=== PATIENT | female | born 1990 | race Hispanic/Latino ===

== ENCOUNTER 2021-05-05 11:22 | Emergency (ER) | payer BC ==
[2021-05-05 12:04] LABS: Urine Blood 2+ (Negative); Urine Glucose Negative (Negative); Urine Protein Negative (Negative); Urine pH 8.5 (5.0-7.0)
[2021-05-05 12:10] LABS: Absolute Lymphocytes (CBC) 3.7 K/uL (0.7-4.9); Basophils % 0.8 % (0-1.3); Hematocrit 41.6 % (36.0-45.0); MPV 8.6 fL (7.6-11.3); RBC Red Blood Cell Count 5.05 M/uL (3.86-4.86)
[2021-05-05 12:46] LABS: ALT/SGPT 46 U/L (12-78); AST/SGOT 29 U/L (15-37); Albumin 3.6 g/dL (3.4-5.0); Alkaline Phosphatase 91 U/L (45-117); BUN Blood Urea Nitrogen 10 mg/dL (7-18); Bicarbonate 28 mmol/L (21-32); Bilirubin Direct 0.1 mg/dL (0-0.2); Bilirubin Total 0.4 mg/dL (0.2-1.0); Glucose Level 93 mg/dL (74-106); Lipase 58 U/L (73-393); Potassium 3.6 mmol/L (3.5-5.1); Protein, Total 8.4 g/dL (6.4-8.2); Sodium Level 140 mmol/L (136-145)
--- NOTE | 2021-05-05 13:21 | RAD REPORT ---
EXAM DESCRIPTION: CTAbdomen Pelvis W Contrast - 05/05/2021 1:06 pm CLINICAL HISTORY: Abdominal pain. Abd pain COMPARISON: No comparisons TECHNIQUE: Biphasic CT imaging of the abdomen and pelvis was performed with 100 ml non-ionic IV cont rast. All CT scans are performed using dose optimization technique as appropriate and may include automated exposure control or mA/KV adjustment according to patient size. FINDINGS: The lung bases are clear. The liver is diffusely fatty. The spleen, pancreas, adrenal glands and kidneys are within normal limi ts. Small fat containing umbilical hernia. No bowel obstruction, free air, free fluid or abscess. The appendix is normal. No evidence of signi ficant lymphadenopathy. No suspicious bony findings. IMPRESSION: No acute intra-abdominal or pelvic finding. Mild diffuse fatty liver.
--- NOTE | 2021-05-05 13:26 | ER ---
Nurse's Notes [facility] Name: Rafia Villarreal Age: 31 yrs Sex: Female : 1990 Arrival Date: 05/05/2021 Time: 11:24 Bed 24 Private MD: Diagnosis: Abnormal uterine and vaginal bleeding, unspecified;Abdominal pain, unspecified Presentation: 05/05 11:40 Chief complaint: Patient states: bright red vaginal bleeding x 3 months, has had sv NEGATIVE tests, abd cramping, "intestines feel tight", fatigue, and dizziness as well. Coronavirus screen: Client denies travel out of the [place] in the last 14 days. At this time, the client does not indicate any symptoms associated with coronavirus-19. Ebola Screen: No symptoms or risks identified at this time. Initial Sepsis Screen: Does the patient meet any 2 criteria? HR > 90 bpm. No. Patient's initial sepsis screen is negative. Does the patient have a suspected source of infection? No. Patient's initial sepsis screen is negative. Risk Assessment: Do you want to hurt yourself or someone else? Patient reports no desire to harm self or others. Onset of symptoms was January 2021. 11:40 Method Of Arrival: Ambulatory sv 11:40 Acuity: BEAR 2 sv Triage Assessment: 11:41 General: Appears in no apparent distress. comfortable, Behavior is calm, cooperative, sv appropriate for age. Pain: Complains of pain in abdomen Pain currently is 7 out of 10 on a pain scale. Neuro: Level of Consciousness is awake, alert, obeys commands, Oriented to person, place, time, situation, Gait is steady. 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 - Social history:: Smoking status: Patient denies any tobacco usage or history of. - Family history:: not pertinent. - Hospitalizations: : No recent hospitalization is reported. Screenin:35 Abuse screen: Denies threats or abuse. Denies injuries from another. Nutritional ca1 screening: No deficits noted. Tuberculosis screening: No symptoms or risk factors identified. Fall Risk IV access (20 points). Total Ignacio Fall Scale indicates No Risk (0-24 pts). Assessment: 11:35 General: Appears in no apparent distress. comfortable, Behavior is calm, cooperative, ca1 appropriate for age. Pain: Complains of pain in right lower quadrant and left lower quadrant Pain currently is 7 out of 10 on a pain scale. at worst was 10 out of 10 on a pain scale. Quality of pain is described as crampy, Pain began months PRESS SETTER Is intermittent. Neuro: Level of Consciousness is awake, alert, obeys commands, Oriented to person, place, time, situation. Cardiovascular: Heart tones S1 S2 present Capillary refill < 3 seconds Patient's skin is warm and dry. Respiratory: Airway is patent Respiratory effort is even, unlabored, Respiratory pattern is regular, symmetrical, Breath sounds are clear bilaterally. GI: Abdomen is round non-distended, Bowel sounds present X 4 quads. Abd is soft X 4 quads Abdomen is tender to palpation in right lower quadrant and left lower quadrant. : Reports vaginal bleeding that is moderate flow, light flow, since 3 months PRESS SETTER. : Urine is clear. EENT: No signs and/or symptoms were reported regarding the EENT system. Derm: Skin is intact, is healthy with good turgor, Skin is pink, warm \\T\\ dry. Musculoskeletal: Circulation, motion, and sensation intact. Capillary refill < 3 seconds. 12:30 Reassessment: Patient appears in no apparent distress at this time. Patient and/or ca1 family updated on plan of care and expected duration. Pain level reassessed. Patient is alert, oriented x 3, equal unlabored respirations, skin warm/dry/pink. 13:40 Reassessment: Patient appears in no apparent distress at this time. Patient and/or ca1 family updated on plan of care and expected duration. Pain level reassessed. Patient is alert, oriented x 3, equal unlabored respirations, skin warm/dry/pink. Vital Signs: 11:40 BP 121 / 78; Pulse 96; Resp 18; Temp 97.6; Pulse Ox 100% ; Weight 81.65 kg; Height 5 sv ft. 1 in. (154.94 cm); Pain 7/10; 12:30 BP 110 / 75; Pulse 68; Resp 18 S; Pulse Ox 100% on R/A; ca1 13:40 BP 120 / 83; Pulse 76; Resp 16; Pulse Ox 100% on R/A; ca1 11:40 Body Mass Index 34.01 (81.65 kg, 154.94 cm) ED Course: 11:24 Patient arrived in ED. rg4 11:29 Lesley Mojica, RN is Primary Nurse. ca1 11:35 Baldo Oconnor MD is Attending Physician. rn 11:35 Patient has correct armband on for positive identification. Placed in gown. Bed in low ca1 position. Call light in reach. Side rails up X2. Pulse ox on. NIBP on. Warm blanket given. 11:41 Triage completed. sv 11:41 Arm band placed on. sv 11:57 Initial lab(s) drawn, by me, sent to lab. Inserted saline lock: 20 gauge in right ca1 forearm, using aseptic technique. Blood collected. 13:05 CT Abd/Pelvis - IV Contrast Only In Process Unspecified. EDMS 13:53 No provider procedures requiring assistance completed. IV discontinued, intact, ca1 bleeding controlled, No redness/swelling at site. Pressure dressing applied. Administered Medications: No medications were administered Outcome: 13:25 Discharge ordered by . rn 13:53 Discharged to home ambulatory. ca1 13:53 Condition: good 13:53 Condition: stable 13:53 Discharge instructions given to patient, Instructed on discharge instructions, follow up and referral plans. Demonstrated understanding of instructions, follow-up care. 13:53 Patient left the ED. ca1 Signatures: Dispatcher [employer] EDMS Kristine Thomas RN RN Baldo Oconnor MD MD rn Garcia, Rubi rg4 Lesley Mojica RN RN ca1 Corrections: (The following items were deleted from the chart) 12:57 12:56 Reassessment: Patient appears in no apparent distress at this time. Patient ca1 and/or family updated on plan of care and expected duration. Pain level reassessed. Patient is alert, oriented x 3, equal unlabored respirations, skin warm/dry/pink. ca1
--- NOTE | 2021-05-05 13:26 | EDPHYS ---
Physician Documentation [facility] Name: Rafia Villarreal Age: 31 yrs Sex: Female : 1990 Arrival Date: 05/05/2021 Time: 11:24 Bed 24 Private MD: ED Physician Baldo Oconnor HPI: 05/05 12:41 This 31 yrs old Female presents to ER via Ambulatory with complaints of rn Vaginal Bleeding. 13:14 The patient presents with vaginal bleeding that is moderate. Onset: The rn symptoms/episode began/occurred 3 month(s) ago. Modifying factors: The symptoms are alleviated by nothing, the symptoms are aggravated by nothing. Associated signs and symptoms: Pertinent positives: cramping, vaginal bleeding, Pertinent negatives: fever, hematuria, vaginal discharge. Severity of symptoms: At their worst the symptoms were moderate, in the emergency department the symptoms have improved. The patient has experienced similar episodes in the past. The patient has not recently seen a physician. 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 - Social history:: Smoking status: Patient denies any tobacco usage or history of. - Family history:: not pertinent. - Hospitalizations: : No recent hospitalization is reported. ROS: 13:15 Constitutional: Negative for fever, chills, and weight loss, Eyes: Negative for injury, rn pain, redness, and discharge, Neck: Negative for injury, pain, and swelling, Cardiovascular: Negative for chest pain, palpitations, and edema, Respiratory: Negative for shortness of breath, cough, wheezing, and pleuritic chest pain, Abdomen/GI: Negative for nausea, vomiting, and constipation, Back: Negative for injury and pain, : Negative for injury, discharge, and swelling, MS/Extremity: Negative for injury and deformity, Skin: Negative for injury, rash, and discoloration, Neuro: Negative for headache, weakness, numbness, tingling, and seizure. 13:15 All other systems are negative. rn Exam: 13:15 Constitutional: This is a well developed, well nourished patient who is awake, alert, rn and in no acute distress. Head/Face: Normocephalic, atraumatic. Eyes: Pupils equal round and reactive to light, extra-ocular motions intact. Lids and lashes normal. Conjunctiva and sclera are non-icteric and not injected. Cornea within normal limits. Periorbital areas with no swelling, redness, or edema. Cardiovascular: Regular rate and rhythm. No pulse deficits. Respiratory: No increased work of breathing, no retractions or nasal flaring. Abdomen/GI: Soft, non-tender Skin: Warm, dry MS/ Extremity: Pulses equal, no cyanosis. Neuro: Awake and alert, GCS 15 Vital Signs: 11:40 BP 121 / 78; Pulse 96; Resp 18; Temp 97.6; Pulse Ox 100% ; Weight 81.65 kg; Height 5 sv ft. 1 in. (154.94 cm); Pain 7/10; 12:30 BP 110 / 75; Pulse 68; Resp 18 S; Pulse Ox 100% on R/A; ca1 13:40 BP 120 / 83; Pulse 76; Resp 16; Pulse Ox 100% on R/A; ca1 11:40 Body Mass Index 34.01 (81.65 kg, 154.94 cm) sv MDM: 11:35 Patient medically screened. rn 13:23 Differential diagnosis: dysmenorrhea, endometriosis, menometrorrhagia, menorrhea, rn nonspecific abdominal pain, uterine fibroids. Data reviewed: vital signs, nurses notes, lab test result(s), radiologic studies, CT scan, and as a result, I will discharge patient. Counseling: I had a detailed discussion with the patient and/or guardian regarding: the historical points, exam findings, and any diagnostic results supporting the discharge/admit diagnosis, lab results, radiology results, the need for outpatient follow up, to return to the emergency department if symptoms worsen or persist or if there are any questions or concerns that arise at home. Medical screen evaluation completed. EMTALA emergency medical condition absent. Special discussion: I discussed with the patient/guardian in detail that at this point there is no indication for admission to the hospital. It is understood, however, that if the symptoms persist or worsen the patient needs to return immediately for re-evaluation. Based on the history and exam findings, there is no indication for further emergent testing or inpatient evaluation. I discussed with the patient/guardian the need to see the OB Gyne specialist for further evaluation of the symptoms. ED course: CT abdomen no acute findings, normal h/h, normal vitals, pt reports normal PAP last year, will dc home with SUPERVISORY AIDE f/u instructions for further w/u.. 05/05 11:47 Order name: Basic Metabolic Panel rn 05/05 11:47 Order name: CBC with Diff rn 05/05 11:47 Order name: Hepatic Function rn 05/05 11:47 Order name: Lipase rn 05/05 11:48 Order name: Basic Metabolic Panel; Complete Time: 13:22 EDTX 05/05 11:48 Order name: CBC with Automated Diff; Complete Time: 13:22 EDTX 05/05 11:47 Order name: IV Saline Lock; Complete Time: 12:03 rn 05/05 11:47 Order name: Labs collected and sent; Complete Time: 12:03 rn 05/05 11:47 Order name: CT Abd/Pelvis - IV Contrast Only; Complete Time: 13:22 rn 05/05 11:47 Order name: Urine Dipstick-Ancillary (obtain specimen); Complete Time: 12:03 rn 05/05 11:48 Order name: Liver (Hepatic) Function; Complete Time: 13:22 EDTX 05/05 11:48 Order name: Lipase; Complete Time: 13:22 EDTX 05/05 12:03 Order name: Urine --Ancillary (enter results) wy 05/05 12:04 Order name: Urine Dipstick-Ancillary; Complete Time: 13:22 EDTX 05/05 11:47 Order name: Urine Test (obtain specimen); Complete Time: 12:03 rn Administered Medications: No medications were administered Disposition Summary: 05/05/21 13:25 Discharge Ordered Location: Home rn Problem: an ongoing problem rn Symptoms: have improved rn Condition: Stable rn Diagnosis - Abnormal uterine and vaginal bleeding, unspecified rn - Abdominal pain, unspecified rn Followup: rn - With: Private Physician - When: As needed - Reason: Recheck today's complaints, Re-evaluation by your physician Discharge Instructions: - Discharge Summary Sheet rn - Abdominal Pain, Adult rn - Abnormal Uterine Bleeding rn - Menorrhagia rn Forms: - Medication Reconciliation Form rn - Thank You Letter rn - Antibiotic service learning coordinator - Prescription Opioid Use rn Signatures: Dispatcher [employer] Kristine Alvares RN RN Baldo Martinez MD MD rn
[2021-05-05 14:09] VITALS: O2SAT 100
[2021-05-05 14:11] VITALS: TEMP 97.6
[2021-05-05 14:12] VITALS: BP 120/83
== END 2021-05-05 13:53 | disposition home or self-care (01) ==
LOC: ER 11:22
DX: N93.9 Abnormal uterine and vaginal bleeding, unspecified (principal)
CPT/HCPCS: 85025; 80048; 36415; 81025; 80076; 81003; 83690; 74177; 99284; Q9967

== ENCOUNTER 2021-10-03 11:14 | Emergency (ER) | payer BC ==
[2021-10-03 12:25] LABS: Absolute Lymphocytes (CBC) 3.3 K/uL (0.7-4.9); Basophils % 0.7 % (0-1.3); Hematocrit 39.4 % (36.0-45.0); Lymphocytes % 27.5 % (15.3-44.8); MPV 8.7 fL (7.6-11.3); RBC Red Blood Cell Count 4.65 M/uL (3.86-4.86)
[2021-10-03 12:32] LABS: Urine Appearance TURBID (Clear); Urine Color RED (Yellow)
[2021-10-03 12:34] LABS: Urine Microscopic Reflex ORDER UMIC
[2021-10-03 12:49] LABS: Urine RBC LOADED /HPF (NONE SEEN)
[2021-10-03 13:32] LABS: Urine Bacteria <20 /HPF (<20)
--- NOTE | 2021-10-03 14:22 | RAD REPORT ---
EXAM DESCRIPTION: US - Transvaginal Study Probe - 10/03/2021 12:58 pm CLINICAL HISTORY: Pain;Vaginal bleeding Pelvic pain. COMPARISON: Transvaginal Study Probe dated 08/03/2021 FINDINGS: The uterus is normal in size, shape and echotexture. The uterus measures 8.2 cm. Question of small nabothian cysts. These are of doubtful significance. The endometrial stripe measures 13 mm which is thickened Both ovaries are normal in size, shape and echotexture. The right ovary measures 2.2 x 1.5 x 2.2 cm with volume of 3.9 cc. The left ovary measures 2.5 x 1.7 x 1.8 cm with volume of 4.1 cc. No ovarian or parovarian lesions. No suspicious adnexal masses. Several simple or minimally complicated adnexal cysts noted. Normal Doppler blood flow was demonstrated to both ovaries. No significant pelvic ascites. IMPRESSION: Nonspecific endometrial thickening which is within normal limits for patient's age. Bila teral ovarian blood flow is present.
--- NOTE | 2021-10-03 14:26 | EDPHYS ---
Physician Documentation [facility] Name: Rafia Villarreal Age: 31 yrs Sex: Female : 1990 Arrival Date: 10/03/2021 Time: 11:19 Bed 18 Private MD: JANA Physician Yonny Huerta HPI: 10/03 16:25 This 31 yrs old Female presents to ER via Ambulatory with complaints of kb Vaginal Bleeding. 16:25 The patient presents with vaginal bleeding that is. Onset: The symptoms/episode kb began/occurred 6 month(s) ago. Modifying factors: The symptoms are alleviated by nothing, the symptoms are aggravated by nothing. Associated signs and symptoms: Pertinent positives: vaginal bleeding, Pertinent negatives: constipation, cramping, diarrhea, dyspareunia, dysuria, fever, hematuria, nausea, urinary frequency, vaginal discharge, vomiting. Severity of symptoms: At their worst the symptoms were moderate, in the emergency department the symptoms are unchanged. The patient has not experienced similar symptoms in the past. The patient has not recently seen a physician. Patient reports vaginal bleeding for 6 months worse since yesterday. Has seen Dr. Horvath for this problem and prescribed control 2 weeks ago.. 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 - Social history:: Smoking status: Patient denies any tobacco usage or history of. ROS: 16:25 Positive for vaginal bleeding. kb 16:25 Constitutional: Negative for fever, chills, and weight loss. 16:25 Abdomen/GI: Positive for abdominal pain, of the suprapubic area. 16:25 All other systems are negative. Exam: 16:25 Constitutional: This is a well developed, well nourished patient who is awake, alert, kb and in no acute distress. Head/Face: Normocephalic, atraumatic. ENT: Moist Mucous membranes Cardiovascular: Regular rate and rhythm with a normal S1 and S2. No gallops, murmurs, or rubs. No pulse deficits. Respiratory: Respirations even and unlabored. No increased work of breathing. Talking in full sentences Skin: Warm, dry with normal turgor. Normal color. MS/ Extremity: Pulses equal, no cyanosis. Neurovascular intact. Full, normal range of motion. Neuro: Awake and alert, GCS 15, oriented to person, place, time, and situation. Moves all extremities. Normal gait. Psych: Awake, alert, with orientation to person, place and time. Behavior, mood, and affect are within normal limits. 16:25 Abdomen/GI: Inspection: abdomen appears normal, Bowel sounds: normal, Palpation: soft, in all quadrants, mild abdominal tenderness, in the suprapubic area. Vital Signs: 11:59 BP 159 / 91; Pulse 77; Resp 16; Temp 97.2; Pulse Ox 100% ; Weight 72.57 kg; Height 5 vg1 ft. 1 in. (154.94 cm); Pain 9/10; 11:59 Body Mass Index 30.23 (72.57 kg, 154.94 cm) vg1 MDM: 12:04 Patient medically screened. kb 16:26 Data reviewed: vital signs, nurses notes. Data interpreted: Pulse oximetry: on room air kb is 100 %. Interpretation: normal. Counseling: I had a detailed discussion with the patient and/or guardian regarding: the historical points, exam findings, and any diagnostic results supporting the discharge/admit diagnosis, lab results, radiology results, the need for outpatient follow up, an OB/Gyne specialist, to return to the emergency department if symptoms worsen or persist or if there are any questions or concerns that arise at home. 10/03 12:04 Order name: CBC with Diff; Complete Time: 13:02 kb 10/03 12:21 Order name: UA bd 10/03 12:04 Order name: US Transvaginal Study (Probe); Complete Time: 14:24 kb 10/03 12:04 Order name: Urine Dipstick-Ancillary (obtain specimen); Complete Time: 12:23 kb 10/03 12:21 Order name: Urinalysis; Complete Time: 13:52 EDMS 10/03 12:43 Order name: Urine Microscopic Only; Complete Time: 13:52 EDMS 10/03 12:04 Order name: Urine Test (obtain specimen); Complete Time: 12:23 kb Administered Medications: No medications were administered Disposition: 10/04 06:55 Co-signature as Attending Physician, Yonny Huerta MD I agree with the assessment and sobia plan of care. Disposition Summary: 10/03/21 14:25 Discharge Ordered Location: Home kb Condition: Stable kb Diagnosis - Abnormal uterine and vaginal bleeding, unspecified kb Followup: kb - With: Emergency Department - When: As needed - Reason: Worsening of condition Followup: kb - With: Private Physician - When: 2 - 3 days - Reason: Recheck today's complaints, Continuance of care, Re-evaluation by your physician Discharge Instructions: - Discharge Summary Sheet kb - Abnormal Uterine Bleeding, [id number] kb Forms: - Medication Reconciliation Form kb - Thank You Letter kb - Antibiotic Education kb - Prescription Opioid Use kb - Work release form jh5 Signatures: Dispatcher [employer] Anne Vivar, CLIPPING MARKER-C CLIPPING MARKER-Yonny Ku MD MD cha Garcia, Victoria, RN RN vg1
--- NOTE | 2021-10-03 14:26 | ER ---
Nurse's Notes [facility] Name: Rafia Villarreal Age: 31 yrs Sex: Female : 1990 Arrival Date: 10/03/2021 Time: 11:19 Bed 18 Private MD: Diagnosis: Abnormal uterine and vaginal bleeding, unspecified Presentation: 10/03 11:59 Chief complaint: Patient states: States hx of ovarian cysts on Left ovary; states vg1 'heavy bleeding with clots' began yesterday and 'went through a whole pack of pad and bleed through elyssa'. States nausea, dizziness, ABD/pelvic, and lower back pain. Coronavirus screen: Vaccine status: Patient reports receiving the 2nd dose of the covid vaccine. Client denies travel out of the [place] in the last 14 days. Ebola Screen: Patient negative for fever greater than or equal to 101.5 degrees Fahrenheit, and additional compatible Ebola Virus Disease symptoms. Initial Sepsis Screen: Does the patient meet any 2 criteria? No. Patient's initial sepsis screen is negative. Does the patient have a suspected source of infection? No. Patient's initial sepsis screen is negative. Risk Assessment: Do you want to hurt yourself or someone else? Patient reports no desire to harm self or others. Onset of symptoms was October 02, 2021. 11:59 Method Of Arrival: Ambulatory vg1 11:59 Acuity: BEAR 3 vg1 Triage Assessment: 12:02 General: Appears in no apparent distress. comfortable, Behavior is calm, cooperative. vg1 Pain: Complains of pain in lower ABD and pelvic area Pain currently is 9 out of 10 on a pain scale. : Reports vaginal bleeding that is with clots, heavy flow states 'bright and dark red'. 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 - Social history:: Smoking status: Patient denies any tobacco usage or history of. Screenin:43 Abuse screen: Denies threats or abuse. Denies injuries from another. Nutritional [facility] screening: No deficits noted. Tuberculosis screening: No symptoms or risk factors identified. Fall Risk None identified. Assessment: 12:41 Reassessment: Assuming care of pt at this time; pt ambulates well; is currently headed [facility] to ultrasound. Pt provided urine sample. AAox4, respirations even and unlabored, color is appropriate for ethnicity, skin warm and dry. Pulses 2+ bilaterally. Pt can move all extremities appropriately without assistance. Will continue to monitor upon return. :. Vital Signs: 11:59 BP 159 / 91; Pulse 77; Resp 16; Temp 97.2; Pulse Ox 100% ; Weight 72.57 kg; Height 5 vg1 ft. 1 in. (154.94 cm); Pain 9/10; 11:59 Body Mass Index 30.23 (72.57 kg, 154.94 cm) 1 ED Course: 11:19 Patient arrived in ED. kc5 12:02 Triage completed. vg1 12:02 Arm band placed on. vg1 12:03 Anne Stanley FNP-C is PHCP. kb 12:04 Yonny Huerta MD is Attending Physician. kb 12:10 Initial lab(s) drawn, by ED staff, sent to lab. 1 12:15 Shobha Bah, RN is Primary Nurse. [facility] 12:43 No provider procedures requiring assistance completed. Missed attempt(s): 20 gauge jh5 attempted by CATTLE TESTER. No line at this time. Will attempt if there is need for IV. Blood was obtained AND SENT. . 12:44 Patient has correct armband on for positive identification. Call light in reach. Side [facility] rails up X 1. 12:58 US Transvaginal Study (Probe) In Process Unspecified. EDMS Administered Medications: No medications were administered Outcome: 14:25 Discharge ordered by . kb 14:32 Patient left the ED. [facility] Signatures: Dispatcher [employer] EDMS Anne Stanley FNP-C FNP-Ckb Garcia, Victoria, RN RN 1 Shobha Bah, DENNISE RN 5 [facility]
[2021-10-03 14:37] VITALS: BP 159/91; TEMP 97.2; O2SAT 100
== END 2021-10-03 14:32 | disposition home or self-care (01) ==
LOC: ER 11:14
DX: N93.9 Abnormal uterine and vaginal bleeding, unspecified (principal)
CPT/HCPCS: 36415; 76830; 81003; 81015; 85025; 99283

== ENCOUNTER 2023-02-21 10:46 | Emergency (ER) | payer BC, SELFPAY ==
[2023-02-21 11:50] LABS: Absolute Lymphocytes (CBC) 3.9 K/uL (0.7-4.9); Hematocrit 40.7 % (36.0-45.0); Lymphocytes % 32.6 % (15.3-44.8); MCV 82.2 fL (80-100); MPV 8.3 fL (7.6-11.3); RBC Red Blood Cell Count 4.95 M/uL (3.86-4.86)
[2023-02-21 11:54] LABS: Specific Gravity 1.015 (1.005-1.030); Urine Bacteria <20 /HPF (<20); Urine Bilirubin NEGATIVE (Negative); Urine Blood 3+ (OVER) (Negative); Urine Clarity Turbid (Clear); Urine Color Light-Brown (Yellow); Urine Crystals Unidentified Few /HPF (None Seen); Urine Glucose NEGATIVE (Negative); Urine Mucus Slight /HPF (None Seen); Urine Protein TRACE (Negative); Urine RBC >50 /HPF (None Seen); Urine Urobilinogen Normal (Normal)
[2023-02-21] MEDS ORDERED: NA CHLORIDE 0.9% 1,000 ML ONE (12:01)
[2023-02-21] MEDS ORDERED: ONDANSETRON 4 MG/2 ML VIAL ONE (12:01)
[2023-02-21] MEDS ORDERED: MORPHINE 4 MG/ML SYR ONE (12:01)
[2023-02-21 12:09] LABS: Albumin 3.5 g/dL (3.4-5.0); Bilirubin Total 0.2 mg/dL (0.2-1.0); Potassium 3.5 mEq/L (3.5-5.1); Protein, Total 8.1 g/dL (6.4-8.2)
--- NOTE | 2023-02-21 12:53 | RAD REPORT ---
EXAM DESCRIPTION: CT - Abdomen Pelvis W Contrast - 02/21/2023 12:32 pm CLINICAL HISTORY: Abdominal pain COMPARISON: none. TECHNIQUE: Computed axial tomography of the abdomen pelvis was obtained. 100 cc Isovue-300 was admin istered intravenously. Oral contrast was not requested which limits evaluation of bowel and appendix All CT scans are performed using dose optimization technique as appropriate and may include automated exposure control or mA/KV adjustment according to patient size. FINDINGS: The liver, spleen, pancreas, adrenal and kidneys appear unremarkable. There is no evidence of diverticulitis. Normal appendix No adnexal mass Small umbilical hernia IMPRESSION: No acute abnormality is displayed.
--- NOTE | 2023-02-21 14:23 | ER ---
Nurse's Notes [facility] Name: Rafia Villarreal Age: 33 yrs Sex: Female : 1990 Arrival Date: 02/21/2023 Time: 10:46 Bed 10 Private MD: Diagnosis: Abnormal uterine and vaginal bleeding, unspecified Presentation: 02/21 10:55 Chief complaint: Patient states: she is having left ovarian pain, and vaginal bleeding. ap3 patient reports that both of her upper legs are feeling weak and numb. patient states these symptoms began approx 0930 this morning. Coronavirus screen: At this time, the client does not indicate any symptoms associated with coronavirus-19. Ebola Screen: No symptoms or risks identified at this time. Initial Sepsis Screen: Does the patient meet any 2 criteria? No. Patient's initial sepsis screen is negative. Does the patient have a suspected source of infection? No. Patient's initial sepsis screen is negative. Risk Assessment: Do you want to hurt yourself or someone else? Patient reports no desire to harm self or others. Onset of symptoms was February 21, 2023 at 09:30. 10:55 Method Of Arrival: Ambulatory ap3 10:55 Acuity: BEAR 3 ap3 Triage Assessment: 10:58 General: Appears in no apparent distress. Behavior is calm, cooperative, appropriate ap3 for age. Pain: Complains of pain in suprapubic area Pain radiates to abdomen, right leg and left leg Pain currently is 9 out of 10 on a pain scale. Pain began 1 hour ago. 10:58 Neuro: Level of Consciousness is awake, alert, obeys commands, Oriented to person, ap3 place, time, situation. Cardiovascular: Patient's skin is warm and dry. Respiratory: Airway is patent Respiratory effort is even, unlabored, Respiratory pattern is regular, symmetrical. : Reports vaginal bleeding that is heavy flow. FRIT MIXER: 15:18 LMP 01/24/2023 nj1 Historical: - Allergies: 10:57 No Known Allergies; ap3 - PMHx: 10:57 Ovarian cysts; ap3 - Immunization history:: Client reports receiving the 2nd dose of the Covid vaccine. - Social history:: Smoking status: Patient denies any tobacco usage or history of. Screenin:00 Abuse screen: Denies threats or abuse. Nutritional screening: No deficits noted. ap3 Tuberculosis screening: No symptoms or risk factors identified. 11:35 [facility] ED Fall Risk Assessment (Adult) History of falling in the last 3 months, nj1 including since admission No falls in past 3 months (0 pts) Confusion or Disorientation No (0 pts) Intoxicated or Sedated No (0 pts) Impaired Gait No (0 pts) Mobility Assist Device Used No (0 pt) Altered Elimination No (0 pt) Score/Fall Risk Level 0 - 2 = Low Risk Oriented to surroundings, Maintained a safe environment, Hourly rounding (assess needs \T\ fall precautionary measures) done. Assessment: 11:35 Reassessment: Patient appears in no apparent distress at this time. Patient and/or nj1 family updated on plan of care and expected duration. Pain level reassessed. Patient is alert, oriented x 3, equal unlabored respirations, skin warm/dry/pink. See triage assessment. 12:24 Reassessment: Patient appears in no apparent distress at this time. Patient and/or nj1 family updated on plan of care and expected duration. Pain level reassessed. Patient is alert, oriented x 3, equal unlabored respirations, skin warm/dry/pink. Patient denies pain at this time. Patient states feeling better. 13:51 Reassessment: Patient appears in no apparent distress at this time. Patient and/or nj1 family updated on plan of care and expected duration. Pain level reassessed. Patient is alert, oriented x 3, equal unlabored respirations, skin warm/dry/pink. 15:11 Reassessment: Patient appears in no apparent distress at this time. Patient and/or nj1 family updated on plan of care and expected duration. Pain level reassessed. Patient is alert, oriented x 3, equal unlabored respirations, skin warm/dry/pink. Pain: Complains of pain in suprapubic area Pain currently is 7 out of 10 on a pain scale. Vital Signs: 10:55 BP 165 / 95; Pulse 71; Resp 17; Temp 98.6; Pulse Ox 100% ; Weight 77.11 kg; Pain 9/10; ap3 12:00 BP 153 / 89; Pulse 67; Resp 16; Pulse Ox 100% on R/A; Pain 9/10; nj1 12:45 BP 128 / 83; Pulse 71; Resp 16; Pulse Ox 100% on R/A; Pain 0/10; nj1 13:51 BP 139 / 82; Pulse 64; Resp 17; Pulse Ox 100% on R/A; Pain 4/10; nj1 15:11 BP 121 / 87; Pulse 62; Resp 17; Pulse Ox 99% on R/A; Pain 7/10; nj1 15:30 Pain 6/10; nj1 10:55 Pain Scale: Adult ap3 12:00 Pain Scale: Adult nj1 12:45 Pain Scale: Adult nj1 13:51 Pain Scale: Adult nj1 15:11 Pain Scale: Adult nj1 15:30 Pain Scale: Adult nj1 ED Course: 10:52 Patient arrived in ED. ts1 10:57 Triage completed. ap3 10:58 Nash Colon NP is PHCP. pm1 10:58 Baldo Oconnor MD is Attending Physician. pm1 10:59 Arm band placed on right wrist. ap3 10:59 Patient has correct armband on for positive identification. Door closed. Noise ap3 minimized. 11:24 Lala Bojorquez, DENNISE is Primary Nurse. nj1 11:35 Inserted saline lock: 20 gauge in right antecubital area, using aseptic technique. nj1 Blood collected. 11:41 CBC with Diff Sent. nj1 11:41 CMP Sent. nj1 11:41 Lipase Sent. nj1 11:41 Test, Urine Sent. nj1 11:41 Urinalysis w/ reflexes Sent. nj1 12:34 CT Abd/Pelvis - IV Contrast Only In Process Unspecified. EDMS 15:30 No provider procedures requiring assistance completed. nj1 15:30 IV discontinued, intact, bleeding controlled. nj1 Administered Medications: 12:00 Drug: morphine IVP or IV 4 mg Route: IVP; Infused Over: 4 mins; Site: right antecubital;nj1 12:23 Follow up: Response: No adverse reaction; Marked relief of symptoms; Pain is decreased nj1 12:00 Drug: Ondansetron IVP 4 mg Route: IVP; Site: right antecubital; nj1 12:23 Follow up: Response: No adverse reaction nj1 12:00 Drug: NS 0.9% IV 1000 ml Route: IV; Rate: 1000 ml; Site: right antecubital; nj1 12:23 Follow up: Response: No adverse reaction nj1 13:00 Follow up: IV Status: Completed infusion; IV Intake: 1000ml nj1 15:11 Drug: Ketorolac IVP 30 mg Route: IVP; Site: right antecubital; nj1 15:30 Follow up: Response: No adverse reaction nj1 15:11 Drug: Acetaminophen-Codeine PO (300 mg-30 mg) 2 tabs Route: PO; nj1 15:30 Follow up: Response: No adverse reaction nj1 Medication: 15:30 VIS not applicable for this client. nj1 Intake: 13:00 IV: 1000ml; Total: 1000ml. nj1 Outcome: 14:22 Discharge ordered by . pm1 15:30 Discharged to home ambulatory. nj1 15:30 Condition: stable 15:30 Discharge instructions given to patient, Instructed on discharge instructions, follow up and referral plans. medication usage, Demonstrated understanding of instructions, follow-up care, medications, Prescriptions given X 1. 15:50 Patient left the ED. nj1 Signatures: Dispatcher [employer] EDMS Nash Colon, RAUL INTERLOCKER pm1 Debo Acuña RN RN ap3 Lala Bojorquez RN RN nj1 Massiel Banks, PAS PAS ts1 Corrections: (The following items were deleted from the chart) 10:58 10:57 PSHx: section; ap3 ap3 12:29 12:00 BP 153 / 89; Pulse 67bpm; Resp 16bpm; Pulse Ox 100% RA; nj1 nj1
--- NOTE | 2023-02-21 14:23 | EDPHYS ---
Physician Documentation [facility] Name: Rafia Villarreal Age: 33 yrs Sex: Female : 1990 Arrival Date: 02/21/2023 Time: 10:46 Bed 10 Private MD: ED Physician Baldo Oconnor HPI: 02/21 11:06 This 33 yrs old Female presents to ER via Ambulatory with complaints of pm1 Vaginal bleeding and abdominal pain. 11:06 The patient presents with vaginal bleeding that is moderate, with clots. Onset: The pm1 symptoms/episode began/occurred this morning. Modifying factors: The symptoms are alleviated by nothing, the symptoms are aggravated by stopping control about 2 months ago. Associated signs and symptoms: Pertinent positives: generalized weakness. Severity of symptoms: in the emergency department the symptoms are unchanged. The patient is sexually active. The patient's method of control includes nothing. The patient has experienced a previous episode, Similar presentation vaginal bleeding and left lower quadrant pain/cramping when patient had left ovarian cyst rupture. Occurred approximately 1 year ago. Patient was treated by Dr. Horvath with control medications. Patient has not taken her control medication for about 2 months. While she was on the control patient without any abnormal vaginal bleeding. The patient has not recently seen a physician, Patient has not followed up with Dr. Horvath since being placed on control 1 year ago. DRAW END HAND: 15:18 LMP 01/24/2023 nj1 Historical: - Allergies: 10:57 No Known Allergies; ap3 - PMHx: 10:57 Ovarian cysts; ap3 - Immunization history:: Client reports receiving the 2nd dose of the Covid vaccine. - Social history:: Smoking status: Patient denies any tobacco usage or history of. ROS: 11:06 Positive for vaginal bleeding, Negative for urinary symptoms, vaginal discharge, pm1 vaginal itching. 11:06 Constitutional: Negative for fever, chills, and weight loss, Cardiovascular: Negative for chest pain, palpitations, and edema, Respiratory: Negative for shortness of breath, cough, wheezing, and pleuritic chest pain. 11:06 Back: Negative for injury and pain, MS/Extremity: Negative for injury and deformity, Skin: Negative for injury, rash, and discoloration. 11:06 Abdomen/GI: Positive for abdominal pain, of the left lower quadrant, cramping, Negative for nausea, vomiting, and diarrhea. 11:06 Neuro: Positive for Generalized weakness. 11:06 All other systems are negative. Exam: 11:06 Constitutional: This is a well developed, well nourished patient who is awake, alert, pm1 and in no acute distress. Head/Face: Normocephalic, atraumatic. 11:06 Back: No spinal tenderness. No costovertebral tenderness. Full range of motion. Skin: Warm, dry with normal turgor. Normal color with no rashes, no lesions, and no evidence of cellulitis. MS/ Extremity: Pulses equal, no cyanosis. Neurovascular intact. Full, normal range of motion. 11:06 Cardiovascular: Exam negative for acute changes, Rate: normal, Rhythm: regular, Pulses: no pulse deficits are appreciated. 11:06 Respiratory: Exam negative for acute changes, respiratory distress, shortness of breath. 11:06 Abdomen/GI: Inspection: abdomen appears normal, Palpation: soft, in all quadrants, mild abdominal tenderness, in the left lower quadrant. 11:06 Neuro: Exam negative for acute changes, Orientation: is normal, Mentation: is normal, Motor: is normal, moves all fours, Gait: is steady, at a normal pace, without difficulty. Vital Signs: 10:55 BP 165 / 95; Pulse 71; Resp 17; Temp 98.6; Pulse Ox 100% ; Weight 77.11 kg; Pain 9/10; ap3 12:00 BP 153 / 89; Pulse 67; Resp 16; Pulse Ox 100% on R/A; Pain 9/10; nj1 12:45 BP 128 / 83; Pulse 71; Resp 16; Pulse Ox 100% on R/A; Pain 0/10; nj1 13:51 BP 139 / 82; Pulse 64; Resp 17; Pulse Ox 100% on R/A; Pain 4/10; nj1 15:11 BP 121 / 87; Pulse 62; Resp 17; Pulse Ox 99% on R/A; Pain 7/10; nj1 15:30 Pain 6/10; nj1 10:55 Pain Scale: Adult ap3 12:00 Pain Scale: Adult nj1 12:45 Pain Scale: Adult nj1 13:51 Pain Scale: Adult nj1 15:11 Pain Scale: Adult nj1 15:30 Pain Scale: Adult nj1 MDM: 11:00 Patient medically screened. pm1 11:06 ED course: Patient reports possibility of . She also does report left lower pm1 quadrant pain feels similar to prior ovarian cysts. Will wait for urine result prior to imaging and pain medication. 11:06 Differential diagnosis: ectopic , menorrhea, nonspecific abdominal pain, pm1 ovarian cyst, uterine fibroids, urinary tract infection. 11:54 ED course: Inform patient the result which is negative. Therefore ordered pm1 medications for pain and CT imaging. 14:16 Data reviewed: vital signs. pm1 14:21 Counseling: I had a detailed discussion with the patient and/or guardian regarding: the pm1 historical points, exam findings, and any diagnostic results supporting the discharge/admit diagnosis, lab results, radiology results, the need for outpatient follow up, an OB/Gyne specialist, to return to the emergency department if symptoms worsen or persist or if there are any questions or concerns that arise at home. 15:11 ED course: [place] reviewed. pm1 15:22 I considered the following discharge prescriptions or medication management in the pm1 emergency department Medications were administered in the Emergency Department. See MAR. 15:22 Care significantly affected by the following Social Determinants of Health: Poor access pm1 to healthcare and/or lack of insurance. 02/21 11:05 Order name: CBC with Diff; Complete Time: 12:08 pm1 02/21 11:05 Order name: CMP; Complete Time: 12:10 pm1 02/21 11:05 Order name: Lipase; Complete Time: 12:10 pm1 02/21 11:05 Order name: Test, Urine; Complete Time: 11:52 pm1 02/21 11:05 Order name: Urinalysis w/ reflexes; Complete Time: 11:55 pm1 02/21 11:53 Order name: CT Abd/Pelvis - IV Contrast Only; Complete Time: 13:04 pm1 02/21 11:05 Order name: IV Saline Lock; Complete Time: 11:41 pm1 02/21 11:05 Order name: Labs collected and sent; Complete Time: 11:41 pm1 Administered Medications: 12:00 Drug: morphine IVP or IV 4 mg Route: IVP; Infused Over: 4 mins; Site: right antecubital;[facility] 12:23 Follow up: Response: No adverse reaction; Marked relief of symptoms; Pain is decreased nj1 12:00 Drug: Ondansetron IVP 4 mg Route: IVP; Site: right antecubital; nj1 12:23 Follow up: Response: No adverse reaction nj1 12:00 Drug: NS 0.9% IV 1000 ml Route: IV; Rate: 1000 ml; Site: right antecubital; nj1 12:23 Follow up: Response: No adverse reaction nj1 13:00 Follow up: IV Status: Completed infusion; IV Intake: 1000ml nj1 15:11 Drug: Ketorolac IVP 30 mg Route: IVP; Site: right antecubital; nj1 15:30 Follow up: Response: No adverse reaction nj1 15:11 Drug: Acetaminophen-Codeine PO (300 mg-30 mg) 2 tabs Route: PO; nj1 15:30 Follow up: Response: No adverse reaction nj1 Disposition: 17:19 Co-signature as Attending Physician, Baldo Oconnor MD I reviewed the patient's care rn provided by the Advanced Practice Provider and agree with the diagnosis and treatment plan. Disposition Summary: 02/21/23 14:22 Discharge Ordered Location: Home pm1 Problem: new pm1 Symptoms: have improved pm1 Condition: Stable pm1 Diagnosis - Abnormal uterine and vaginal bleeding, unspecified pm1 Followup: pm1 - With: Emergency Department - When: As needed - Reason: Worsening of condition Followup: pm1 - With: Private Physician - When: 2 - 3 days - Reason: Recheck today's complaints, Continuance of care, Re-evaluation by your physician Discharge Instructions: - Discharge Summary Sheet pm1 - Abnormal Uterine Bleeding pm1 Forms: - Medication Reconciliation Form pm1 - Thank You Letter pm1 - Antibiotic Education pm1 - Prescription Opioid Use pm1 Prescriptions: - acetaminophen-codeine 300-30 mg Oral tablet - take 2 tablet by ORAL route every 6 hours for 6 hours as needed for pain; 20 pm1 tablet; Refills: 0, Product Selection Permitted Signatures: Dispatcher [employer] EDBaldo Lopez MD MD rn Marinas, Patrick, NP MORTGAGE LOAN OFFICER pm1 Debo Acuña RN RN ap3 Lala Bojorquez RN RN nj1 Corrections: (The following items were deleted from the chart) 10:58 10:57 PSHx: section; ap3 ap3
[2023-02-21] MEDS ORDERED: CODEINE 30MG/APAP 300MG TAB ONE (15:11)
[2023-02-21] MEDS ORDERED: KETOROLAC 30 MG/ML INJ ONE (15:12)
[2023-02-21 16:15] VITALS: TEMP 98.6
[2023-02-21 16:24] VITALS: BP 121/87; O2SAT 99
== END 2023-02-21 15:50 | disposition home or self-care (01) ==
LOC: ER 10:46
DX: N93.9 Abnormal uterine and vaginal bleeding, unspecified (principal)
CPT/HCPCS: 36415; 74177; 80053; 81001; 81025; 83690; 85025; 96361; 96374; 96375; 99284; J2405; J7030; Q9967